=== PATIENT | male | born 1975 | race Asian ===

== ENCOUNTER 2017-02-02 19:59 | Emergency (ER) | payer OTHER ==
[2017-02-02 22:16] LABS: BASOPHIL 1.1 % (0-2); EOSINOPHIL 3.5 % (0-5); HCT 46.3 % (42.0-52.0); HGB 16.6 g/dl (13.2-18.0); MCH 30.3 pg (25.0-31.0); MCHC 35.9 g/dL (32.0-36.0); MCV 84.6 fL (78.0-100.0); MONOCYTE 8.1 % (0-12); MPV 9.4 fL (6.0-9.5); NEUTROPHIL 49.3 % (41-80); PLT 295 K/uL (150-400); RBC 5.47 M/uL (4.70-6.00); RDW 12.6 % (11.5-14.0); WBC 6.6 K/uL (4.0-10.5)
[2017-02-02 22:31] LABS: CREATININE 1.1 mg/dL (0.7-1.2); MAGNESIUM 2.27 mg/dL (1.40-2.10); PHOSPHORUS 3.6 mg/dL (2.7-4.5); POTASSIUM 3.9 mmol/L (3.5-5.1)
[2017-02-02 22:42] LABS: FT4 (FREE T4) 1.31 ng/dL (0.93-1.70); TSH (THYROID STIM HORMONE) 1.18 uIU/mL (0.270-4.200)
== END 2017-02-03 00:17 | disposition home or self-care (01) ==
LOC: FER 19:59
PROVIDERS: Emergency Medicine
DX: R00.2 Palpitations (principal); E78.5 Hyperlipidemia, unspecified; Z79.899 Other long term (current) drug therapy
CPT/HCPCS: 36415; 71020; 80048; 83735; 84100; 84439; 84443; 85025; 93005